=== PATIENT | female | born 1990 ===

== ENCOUNTER 2017-05-05 11:48 | Emergency (ER) | payer MEDICAID ==
[2017-05-05] MEDS ORDERED: Lactated Ringer's 1,000 ML IV SCH (12:45)
[2017-05-05 12:50] LABS: RBC URINE 3 /hpf (0-3); URINE BACTERIA FEW (<OCC); URINE BILIRUBIN NEGATIVE (NEGATIVE); URINE BLOOD NEGATIVE (NEGATIVE); URINE COLOR Yellow (YELLOW); URINE GLUCOSE (UA) NORMAL (Normal); URINE KETONE NEGATIVE (NEGATIVE); URINE LEUKOCYTE ESTERASE 3+ Leu/uL (Negative); URINE PROTEIN NEGATIVE (NEGATIVE); URINE UROBILINOGEN NORMAL mg/dL (0.2-1.0); WBC URINE 15 /hpf (0-5)
--- NOTE | 2017-05-05 14:56 | OBHP ---
Datetime: 05/05/2017 14:53 Admit Comment, IP Provider: pt was examined at bed side. feelsd better.no ctxs, vb, lof,+fm ve closed x 2 ua 3+le s/p ivf and procardia plan dc home macrobid x 7days procardia 10 mg bid x 7 da f/u in clinic on monday po hyr ptl given FHR - Baseline A Provider: 130 Contraction Comments Provider: none Vital Signs Provider: Reviewed; Within Normal Limits NICHD Variability Prov Fetus A: Moderate 6-25bpm NICHD Accel Fetus A IP Provider: 15X15 FHR Category Provider Fetus A: Category I Dilatation, Provider: 0 Effacement, Provider: 0 Station, Provider: -3 Datetime: 05/05/2017 12:26 Extremities - PN: Normal Abdomen - PN: Normal Lungs - PN: Normal Heart - PN: Normal General - PN: Normal Comments, ACOG Physical Exam: Gen: AAOX3, NAD Cardio: RRR, normal S1, S2 Pulm: CTA bilaterally Abdomen: Soft, gravid, fundal height (35.5cm) Ext: No cyanosis, no clubbing and no edema SVE: closed cervix EFM: 145, + ACCELS, - DECELS TOCO: Regular, 3mins apart Gestation - Est Wks by US: 36.0 Pool Provider: Negative Nitrazine Provider: Positive NICHD Decel Fetus A IP Provider: None
--- NOTE | 2017-05-05 14:58 | OBDCSUM ---
Datetime: 05/05/2017 14:55 Discharged to, Provider: Home Follow up at, Provider: monday Follow up in weeks, Provider: clinic Disch Activity Restrictions: No sexual activity; Nothing in vagina - [place], tampons, douche Discharge Comment, Provider: dc home macrobid x 7days procardia 10 mg bid x 7 da f/u in clinic on monday po hyr ptl given Discharge Diagnosis Prov Other: 36weeks nst ctxs
[2017-05-05 21:35] VITALS: BP 112/70; PULSE 110; RESP 18; TEMP 97.1
== END 2017-05-05 16:00 | disposition home or self-care (01) ==
LOC: C.EROB 11:48
DX: O26.892 Other specified pregnancy related conditions, second trimester (principal); Z3A.36 36 weeks gestation of pregnancy
CPT/HCPCS: 81001; 82948; 99283; J3105; J7120

== ENCOUNTER 2017-05-14 08:42 | Emergency (ER) | payer MEDICAID ==
[2017-05-14 10:12] VITALS: BMI 25.7
--- NOTE | 2017-05-14 12:00 | OBHP ---
Datetime: 05/14/2017 11:56 IP Adm Impression: Term, intrauterine ; No Active Labor IP Admit Plan: Discharge home Admit Comment, IP Provider: chief complaint-contractions HPI at 37.2 wga with c/o contractions starting at 10a m.Patient denies vaginal bleeidng or lo ss of fluid course gdma1 PMH denies PSH denies OBGYN HX Social hx denies tobacco,alcohol or illicit drug use Exam see exam section A/P AT 37.2 wga with c/o contractions.Cervix unchanged on re-examining after more radha 2 hour s -discharge home -follow up in cli ic in am -patient given active labor precautions Pelvic Type - PN: Adequate Extremities - PN: Normal Abdomen - PN: Normal Back - PN: Normal Lungs - PN: Normal Heart - PN: Normal Neurologic - PN: Normal General - PN: Normal Contraction Comments Provider: irregular EGA AdmitDate IP: 37.2 Vital Signs Provider: Reviewed; Within Normal Limits IP Chief Complaint: Uterine contractions FHR Category Provider Fetus A: Category I Dilatation, Provider: 2-3 Effacement, Provider: 50 Station, Provider: -2 Genitourinary Exam: Normal DTRs - PN: Normal
[2017-05-14 16:30] VITALS: BP 100/70; PULSE 108; RESP 18; TEMP 97.2
== END 2017-05-14 12:18 | disposition home or self-care (01) ==
LOC: C.EROB 08:42
DX: O47.1 False labor at or after 37 completed weeks of gestation (principal); Z3A.37 37 weeks gestation of pregnancy

== ENCOUNTER 2017-05-22 10:08 | Inpatient (IN) | payer MEDICAID ==
--- NOTE | 2017-05-22 10:27 | OBADHP ---
Datetime: 05/22/2017 10:22 Admit Comment, IP Provider: g2p at 38.2weks came with c/o srom at 9 am , with irrg ctxs, no vb,+fm. obhx 1 x pmh gdma1 med pnv all nkda psh de soch de sse clear+,+nitrazine a/p at 38+weeks prom/labor dmit to l_d npo/ivf labs pain manageme cont ernestina and efm start ptiocin anticipte Pelvic Type - PN: Adequate Extremities - PN: Normal Abdomen - PN: Normal Back - PN: Normal Breast - PN: Normal Lungs - PN: Normal Heart - PN: Normal Thyroid - PN: Normal Neurologic - PN: Normal HEENT - PN: Normal General - PN: Normal FHR - Baseline A Provider: 140 Amniotic Fluid Color, Provider: Clear Membranes, Provider: Ruptured Contraction Comments Provider: q1-4 Comments, ACOG Physical Exam: gravid,non tender ext no edema,no calf ten sse +pooling,+nitrazine Pool Provider: Positive Nitrazine Provider: Positive IP Hx Assessment: The History has been Reviewed and is Current Vital Signs Provider: Reviewed; Within Normal Limits IP Chief Complaint: Uterine contractions; Suspected ruptured membranes NICHD Variability Prov Fetus A: Moderate 6-25bpm NICHD Accel Fetus A IP Provider: 15X15 FHR Category Provider Fetus A: Category I NICHD Decel Fetus A IP Provider: None Dilatation, Provider: 3 Effacement, Provider: 70 Station, Provider: -2 Genitourinary Exam: Normal DTRs - PN: Normal EGA AdmitDate IP: 38.2 IP Adm Impression: Term, intrauterine ; Active labor IP Admit Plan: Admit to unit; Initiate labor protocol Datetime: 05/05/2017 12:26 Gestation - Est Wks by US: 36.0
[2017-05-22] MEDS ORDERED: Lactated Ringer's 1,000 ML IV SCH (10:30)
[2017-05-22 10:54] LABS: BASO % 0.3 % (0.0-2.0); EOS # 0.1 K/uL (0.0-0.7); EOS % 0.6 % (0.0-4.0); HEMATOCRIT 37.3 % (34.0-47.0); LYMPH # 1.7 K/uL (1.0-4.3); LYMPH % 15.1 % (20.0-40.0); MEAN CELL VOLUME 91.4 fL (81.0-99.0); MEAN CORPUSCULAR HEMOGLOBIN 31.2 pg (27.0-31.0); MEAN CORPUSCULAR HGB CONC 34.1 g/dL (33.0-37.0); MEAN PLATELET VOLUME 8.8 fL (7.2-11.7); MONO # 0.8 K/uL (0.0-0.8); MONO % 6.5 % (0.0-10.0); NRBC % 0.1 % (0.0-2.0); RED CELL DISTRIBUTION WIDTH 16.7 % (11.5-14.5); WHITE BLOOD COUNT 11.5 K/uL (4.8-10.8)
[2017-05-22] MEDS ORDERED: Oxytocin 30 UNIT 30 UNITS/500 ML BAG IV ONE (11:04)
[2017-05-22] MEDS ORDERED: Oxytocin 30 UNIT 30 UNITS/500 ML BAG IV PRN (11:05)
[2017-05-22] MEDS ORDERED: Nalbuphine 20 mg/ml Inj (1 ml) IVP PRN (11:15)
[2017-05-22 11:24] LABS: ALB/GLOB RATIO 1.1 (1.0-2.1); ALKALINE PHOSPHATASE 182 U/L (38-126); ALT/SGPT 36 U/L (9-52); AST/SGOT 22 U/L (14-36); BILIRUBIN,TOTAL 0.7 mg/dL (0.2-1.3); CALCIUM 9.1 mg/dl (8.6-10.4); CARBON DIOXIDE 21 mmol/L (22-30); CHLORIDE 99 mmol/L (98-107); GFR AFRICAN-AMERICAN > 60; GLUCOSE,RANDOM 73 mg/dL (65-105); POTASSIUM 3.7 mmol/L (3.6-5.2); SODIUM 131 mmol/L (132-148)
[2017-05-22 13:54] LABS: BLOOD UREA NITROGEN 2 mg/dL (7-17)
[2017-05-22] MEDS ORDERED: Bupivacaine 0.125%/FentaNYL 200 ML EPI ONE (14:50)
[2017-05-22] MEDS ORDERED: Benzocaine/Menthol 20%-0.5% Topical Spray (60 ml) TOP PRN (16:18)
[2017-05-22] MEDS ORDERED: Oxycodone/Acetaminophen 5/325 mg Tab PO PRN (16:18)
--- NOTE | 2017-05-22 16:22 | OBDS ---
DELIVERY PERSONNEL Delivery Doctor: Eliot Thakur MD Mica Machine Operator: Crescencio Marie RN Anesthesiologist: adelita MATERNAL INFORMATION Delivery Anesthesia: Epidural Maternal Complications: None Provider Comments: baby deliverd in lissy. end clean no com 9/9 plac to pathology LABOR SUMMARY EDC: 06/03/2017 00:00 No. Babies in Womb: 1 Attempted: No LABOR INFORMATION Oxytocin: Augmentation Group B Beta Strep: Negative Steroids Given: None Reason Steroids Not Administered: Not Applicable MEMBRANES Membranes Rupture Method: Spontaneous Rupture of Membranes: 05/22/2017 13:44 Length of Rupture (hrs): 2.40 Amniotic Fluid Color: Clear Amniotic Fluid Amount: Moderate Amniotic Fluid Odor: Normal STAGES OF LABOR Stage 3 hrs: 0 Stage 3 min: 8 VAGINAL DELIVERY Episiotomy: None Laceration Extension: First Degree Laceration Type: Perineal Laceration Repair Note: repaired with 2 and 3 chromic Initial Vag Sponge Count: 10 Final Vag Sponge Count: 10 Initial Vag Sharps Count: 2 Final Vag Sharps Count: 2 Sponge Count Correct: Yes Sharps Count Correct: Yes BABY A INFORMATION Infant Delivery Date/Time: 05/22/2017 16:08 Method of Delivery: Vaginal Born in Route : No : N/A Forceps: N/A Vacuum Extraction: N/A Shoulder Dystocia : No SHOULDER DYSTOCIA BABY A Delivery Date/Time: 05/22/2017 16:08 PRESENTATION/POSITION BABY A Presentation: Cephalic Cephalic Presentation: Vertex Vertex Position: Left Occipital Anterior Breech Presentation: N/A PLACENTA INFORMATION BABY A Placenta Delivery Time : 05/22/2017 16:16 Placenta Method of Delivery: Spontaneous Placenta Status: Delivered SCORES BABY A Heart Rate 1 min: >100 bpm Resp Effort 1 min: Good Cry Reflex Irritability 1 min: Cough or Sneeze or Pulls Away Muscle Tone 1 min: Active Motion Color 1 min: Body [place], Extremities Blue SCORE 1 MIN: 9 Heart Rate 5 min: >100 bpm Resp Effort 5 min: Good Cry Reflex Irritability 5 min: Cough or Sneeze or Pulls Away Muscle Tone 5 min: Active Motion Color 5 min: Body [place], Extremities Blue SCORE 5 MIN: 9 INFORMATION BABY A Gestational Age at Delivery: 38.0 Gestational Status: Term Outcome : Liveborn Condition : Stable Infant Sex: Male IDENTIFICATION/MEDS BABY A ID Band Number: [id number] ID Band Location: Left Leg; Left Arm Sensor Applied: Yes Sensor Number: [id number] Sensor Location : Cord Clamp WEIGHT/LENGTH BABY A Birthweight (gms): 3415 Infant Weight (lb): 7 Weight (oz): 8 Infant Length Inches: 20.00 Length cms: 50.8 CORD INFORMATION BABY A No. Cord Vessels: 3 Nuchal Cord : Around Neck x1, Loose Cord Blood Taken: Yes Suction: Mouth; Nose ASSESSMENT BABY A Infant Complications: None Physical Findings at Delivery: Within Normal Limits Infant Respirations: Appears Normal Warp Tester/ALS Called : No Care By: dr tyson Transferred To: Remains with Mother
[2017-05-22] MEDS ORDERED: Oxytocin 30 UNIT 30 UNITS/500 ML BAG IV SCH (16:30)
[2017-05-23 07:23] LABS: BASO % 0.2 % (0.0-2.0); EOS # 0.2 K/uL (0.0-0.7); EOS % 1.1 % (0.0-4.0); HEMATOCRIT 35.5 % (34.0-47.0); LYMPH # 2.3 K/uL (1.0-4.3); LYMPH % 14.2 % (20.0-40.0); MEAN CELL VOLUME 92.9 fL (81.0-99.0); MEAN CORPUSCULAR HEMOGLOBIN 31.7 pg (27.0-31.0); MEAN CORPUSCULAR HGB CONC 34.1 g/dL (33.0-37.0); MONO # 1.4 K/uL (0.0-0.8); MONO % 8.7 % (0.0-10.0); RED CELL DISTRIBUTION WIDTH 16.9 % (11.5-14.5); WHITE BLOOD COUNT 16.1 K/uL (4.8-10.8)
--- NOTE | 2017-05-23 07:47 | OBPPN ---
Datetime: 05/23/2017 07:45 PP Pain Prov: Within normal limits PP Nausea Prov: Denies PP Flatus Prov: Yes PP Heart Prov: Normal PP Lungs Prov: Normal PP Abdomen/Uterus Prov: Normal PP Lochia Prov: Normal PP CVA Tenderness Prov: Normal PP Extremities Prov: Normal PP C/S Incision Prov: Not Applicable PP Progress Prov: Normal PP Impression Prov: Normal progression PP Plan Prov: Continue present management PP Progress Note Prov: S-patient reports that pain is well controlled.she denies nausea, vomiting,he adache, chest pain, shortness of breath, numbness or tingling in hands and feet O-VSS Afebrile Fundus firm and below umbilicus extremities no calf tenderness A/P Patient s/p vaginal delivery PPD 1 doingwell -continue routine pp care -follow up am cbc -monitor closely Vital Signs Provider PP: Reviewed; Within Normal Limits
[2017-05-24 08:06] VITALS: RESP 20
[2017-05-24 08:09] LABS: BASO # 0.1 K/uL (0.0-0.2); BASO % 0.3 % (0.0-2.0); EOS # 0.3 K/uL (0.0-0.7); EOS % 1.9 % (0.0-4.0); HEMATOCRIT 38.1 % (34.0-47.0); LYMPH # 2.1 K/uL (1.0-4.3); LYMPH % 14.6 % (20.0-40.0); MEAN CELL VOLUME 93.4 fL (81.0-99.0); MEAN CORPUSCULAR HEMOGLOBIN 30.5 pg (27.0-31.0); MEAN CORPUSCULAR HGB CONC 32.6 g/dL (33.0-37.0); MEAN PLATELET VOLUME 8.8 fL (7.2-11.7); MONO # 1.3 K/uL (0.0-0.8); MONO % 8.7 % (0.0-10.0); NRBC % 0.4 % (0.0-2.0); RED CELL DISTRIBUTION WIDTH 16.6 % (11.5-14.5); WHITE BLOOD COUNT 14.6 K/uL (4.8-10.8)
--- NOTE | 2017-05-24 11:12 | OBPPN ---
Datetime: 05/24/2017 11:04 PP Pain Prov: Within normal limits PP Nausea Prov: Denies PP Flatus Prov: Yes PP BM Prov: Yes PP Breasts Prov: Normal PP Heart Prov: Normal PP Lungs Prov: Normal PP Abdomen/Uterus Prov: Normal PP Lochia Prov: Normal PP Vulva/Perineum Prov: Normal PP CVA Tenderness Prov: Normal PP Extremities Prov: Normal PP C/S Incision Prov: Not Applicable PP Progress Prov: Normal PP Comments Phys Exam Prov: Abdomen: Soft. Non distended. (+) BS. Fundus firm, mobile, non tender, a t umbilicus. Mild lochia rubra All other systems reviewed and are negative PP Impression Prov: Normal progression PP Plan Prov: Discharge PP Progress Note Prov: Patient received in room 459; seen at approximately 0745 hours: infant on gabrielle ast. also present. exclusively. (+) BM; deines nausea, vomiting. ambulating an d voiding without difficulty. P.E.: as above. WD in NAD. Awake, alert, oriented to time, person and place. Pleasant and coopera tive. - H/H 12.4/38.1; WBC 14.6. Rh (+) Assessment: PPD#2, 27 y.o. P2, S/P . Afebrile, vital signs stable. Unsure re: contraception. Clinically stable. Plan: 1) Discharge home 2) See full discharge instructions Vital Signs Provider PP: Reviewed; Within Normal Limits
--- NOTE | 2017-05-24 11:14 | OBDCSUM ---
Datetime: 05/24/2017 09:00 Discharged to, Provider: Home Follow up at, Provider: [facility] Disch Instr Activity: Normal activity Disch Instr Diet: Regular Discharge Diet restrict Prov: none Discharge Instructions, Provider: Routine instructions given Discharge Diagnosis, Provider: Term Delivered Discharge Time: 05/24/2017 11:00 Follow up in weeks, Provider: 6 weeks Disch Referrals: None Contraception discussed, Prov: Yes Disch Activity Restrictions: No lifting; No driving; No sexual activity; Nothing in vagina - Interco urse, tampons, douche Discharge Diagnosis Prov Other: Gestational Diabetes mellitus Contraception counseling Contraception after Delivery: Undecided
[2017-05-24 15:41] VITALS: BP 104/71; PULSE 88; TEMP 97.2; O2SAT 98
== END 2017-05-24 10:55 | disposition home or self-care (01) | DRG 775 ==
LOC: C.EROB 10:08 → C.4D 10:23 → C.4M 17:25
PROVIDERS: ADMIT Obstetrics & Gynecology; ATTEND Obstetrics & Gynecology
PROC: 10E0XZZ Delivery of Products of Conception, External Approach (ICD-10-PCS; principal; 2017-05-22)
PROC: 0HQ9XZZ Repair Perineum Skin, External Approach (ICD-10-PCS; 2017-05-22)
DX: O24.420 Gestational diabetes mellitus in childbirth, diet controlled (principal); O69.81X0 Labor and delivery complicated by cord around neck, without compression, not applicable or unspecified; O70.0 First degree perineal laceration during delivery; Z37.0 Single live birth; Z3A.38 38 weeks gestation of pregnancy